=== PATIENT | male | born 1965 | race Caucasian/White ===

== ENCOUNTER → 2024-01-09 09:30 | Outpatient (REF) | payer OTHER, SELFPAY | LOC: HWRAD 09:30 | PROVIDERS: ATTENDING PHYSICIAN Otolaryngology Facial Plastic Surgery; FAMILY PHYSICIAN Family Medicine | DX: J33.0 Polyp of nasal cavity (principal); J32.0 Chronic maxillary sinusitis; J32.2 Chronic ethmoidal sinusitis | CPT/HCPCS: 70486 ==

== ENCOUNTER 2024-02-28 06:12 | Day surgery (SDC) | payer OTHER, SELFPAY ==
[2024-02-13 08:36] VITALS: BMI 24.0
[2024-02-13 09:59] LABS: Hematocrit 45.6 % (39.0-52.0); Hemoglobin 16.2 g/dL (13.0-18.0); Mean Corp Hgb Conc. 35.5 g/dL (33.0-37.0); Mean Corpuscular Hgb 31.7 pg (27.0-31.0); Mean Corpuscular Volume 89.2 fL (80.0-94.0); Platelet Count 208 10^3/uL (130-400); Red Blood Cell Count 5.11 10^6/uL (4.70-6.10); Red Cell Dist. Width 12.8 % (11.5-14.5); White Blood Cell Count 6.8 10^3/uL (4.8-10.8)
[2024-02-28] VITALS (10 sets, daily range): BP systolic 115–164; BP diastolic 66–98; BMI 24.0
[2024-02-28] MEDS: NORMOSOL-R 1000 IV (08:22)
== END 2024-02-28 14:14 | disposition home or self-care (01) ==
LOC: SDS 06:12
PROVIDERS: ATTENDING PHYSICIAN Otolaryngology Facial Plastic Surgery; FAMILY PHYSICIAN Family Medicine
DX: J32.9 Chronic sinusitis, unspecified (principal); J33.9 Nasal polyp, unspecified; J34.3 Hypertrophy of nasal turbinates; J34.2 Deviated nasal septum
CPT/HCPCS: 31276; 30520; 31267; 31288; 30140; 88304; 88311; 85027; 93005

== ENCOUNTER 2024-11-25 16:45 | Emergency (ER) | payer OTHER, SELFPAY ==
[2024-11-25 16:47] VITALS: BP 175/110
[2024-11-25 18:21] VITALS: BMI 24.1
[2024-11-25 18:34] LABS: % Basophils 0.6 % (0-2); % Eosinophils 6.8 % (0-6); % Immature Granulocytes 0.4 % (0-0.5); % Lymphocytes 15.8 % (20.5-51.1); % Monocytes 7.8 % (1.7-9.3); % Neutrophils 68.6 % (42.2-75.2); Absolute Basophils 0.1 10^3/uL (0-0.2); Absolute Eosinophils 0.7 10^3/uL (0-0.7); Absolute Lymphocytes 1.6 10^3/uL (1.2-3.4); Absolute Monocytes 0.8 10^3/uL (0.1-0.6); Absolute Neutrophils 6.9 10^3/uL (1.4-6.5); Hematocrit 45.8 % (39.0-52.0); Hemoglobin 16.4 g/dL (13.0-18.0); Mean Corp Hgb Conc. 35.8 g/dL (33.0-37.0); Mean Corpuscular Hgb 31.2 pg (27.0-31.0); Mean Corpuscular Volume 87.2 fL (80.0-94.0); Mean Platelet Volume 8.3 fL (7.4-10.4); Nucleated Red Blood Cells % 0 % (-); Platelet Count 191 10^3/uL (130-400); Red Blood Cell Count 5.25 10^6/uL (4.70-6.10); Red Cell Dist. Width 12.9 % (11.5-14.5); White Blood Cell Count 10.1 10^3/uL (4.8-10.8)
[2024-11-25] MEDS: OMNIPAQUE 50 ML PO (18:36)
[2024-11-25 18:45] LABS: ALT (SGPT) 24 U/L (0-50); AST (SGOT) 19 U/L (17-59); Alkaline Phosphatase 55 U/L (38-126); Blood Urea Nitrogen 18 mg/dl (9-20); Calcium 9.4 mg/dl (8.4-10.2); Carbon Dioxide 29 mmol/L (22-30); Chloride 104 mmol/L (98-107); Estimated Creatinine Clearance 89 ml/min; Glucose 89 mg/dl (70-99); Lipase 63 U/L (23-300); Potassium 4.2 mmol/L (3.5-5.1); Sodium 140 mmol/L (135-145); Total Bilirubin 2.8 mg/dl (0.2-1.3); Total Protein 6.6 g/dl (6.3-8.2); eGFR > 60.00
--- NOTE | 2024-11-25 19:04 | ED.GENMED ---
History of Present Illness
General
Chief Complaint: Rectal Bleeding
Source: patient
Exam Limitations: none
Time Seen by Provider: 11/25/24 17:49
Nursing documentation reviewed up to this point in time: agreed with
History of Present Illness
History of Present Illness:
Patient to ED with complaint of abdominal pain and bloating. States he had a normal BM yesterday but then last PM he felt like he needed to pass more stool but couldnt. Report straining without passisng stool. He then developed severe abd. pain.
No vomiting or diarrhea. States this AM he passed a small amt of stool and noted blood on tissue. He passed another small stool [employer] and there was blood in toilet. COntinues wtih abd. pain and bloating. Denies fever/chills
Past History
Past History
ED Past Medical History: Hypercholesterolemia and Other ([place] disease)
Social History
Tobacco: Non-smoker
Personal:
Review of Systems
Review of Systems
Allergies reviewed?: Yes
All Other Systems: ROS reviewed and negative except as documented in HPI and ROS
Constitutional: Reports no symptoms
EENT: Reports no symptoms
Respiratory: Reports no symptoms
Cardiac: Reports no symptoms
ABD/GI: Reports abdominal pain and other (bloating, blood on tissue and in toilet)
: Reports no symptoms
Musculoskeletal: Reports no symptoms
Skin: Reports no symptoms
Neurological: Reports no symptoms
Psychiatric: Reports no symptoms
Phy Exam
General Physical Exam
General Presentation: well appearing and no apparent distress
General age: appears stated age
General Skin: warm and dry
General Habitus: normal
General Mental: alert
Cardiovascular Exam
Cardiovascular Exam: regular rate/rhythm and no edema
Gastrointestinal Exam
Gastrointestinal Exam: normal bowel sounds, soft, no organomegaly, no pulsatile mass, non distended and no cva tenderness
Palpation: generalized: Mild tenderness
Rectal Exam: normal external exam, normal sphincter tone and soft stool
Stool: brown
Guaiac Status: negative
Musculoskeletal Exam
Musculoskeletal Exam: full ROM and neuro vasc intact
Skin Exam
Skin Exam: normal color, warm/dry and no rash
Psychiatric Exam
Psychiatric Exam: normal mood/affect
Course
Orders/Labs/Results
Orders:
Orders
11/25/24 18:13
CT Abd/pel W Iv And Oral Contr Urgent
Comment:
Reason For Exam: diffuse pain, bloating
Iohexol [Omnipaque] See Protocol PO NOW STA
11/25/24 18:20
Complete Blood Count/With Diff Urgent
Comprehensive Metabolic Panel Urgent
Lipase Urgent
Abnormal Lab Results
11/25/24
18:20
MCH 31.2 H pg
(27.0-31.0)
Absolute Neuts (auto) 6.9 H 10^3/uL
(1.4-6.5)
Absolute Monos (auto) 0.8 H 10^3/uL
(0.1-0.6)
Lymphocytes % 15.8 L %
(20.5-51.1)
Eosinophils % 6.8 H %
(0-6)
Total Bilirubin 2.8 H mg/dl
(0.2-1.3)
11/25/24 18:20
11/25/24 18:20
Vital Signs
Initial and Last Documented VS:
Initial Vital Signs
Temp Pulse Resp BP Pulse Ox
98.2 F 61 16 175/110 99
11/25/24 16:47 11/25/24 16:47 11/25/24 16:47 11/25/24 16:47 11/25/24 16:47
Last Documented Vital Signs
Temp Pulse Resp BP Pulse Ox
98.2 F 54 16 146/86 97
11/25/24 16:47 11/25/24 18:28 11/25/24 16:47 11/25/24 21:07 11/25/24 21:32
*Radiology
Radiology exam reviewed: radiology read reviewed
*Pulse Oximetry
Patient hypoxic: no
*Critical Care Note
Total Time (30-74mins, 75-104mins- exclusive of procedures): Not Applicable
Update Note
Update Note:
Patient to ED for eval of abdominal pain, blood with BM today. Labs reveiwed. Hgb normal, WBC normal. Tbili 2.8. He has a known history of [place] and reports this result is typical. Stool heme neg. Ct result of colitis of descending colon.
Reviewed this with patient. Recommend clear liquids, advance diet as tolerated. Doubtful for infectious etiology as he is afebrile with normal labs, no diearrhea. He remains afebrile. WIll discharge home, follow u with PCP in AM. Given
instructions on s/s to return to ED and he is agreeable to plan.
ED Attending Note
-
Portions of this chart may have been created with voice recognition software.� Occasional wrong word or��sound alike� substitutions may have occurred due to the inherent limitations of voice recognition software.
Discharge Plan
Departure
Patient Disposition: Home (Routine Discharge)
Date of Disposition: 11/25/24
Time of Disposition: 21:40
Patient with high blood pressure during this ER visit?: No
Condition: Good
Covid-19: Not Applicable
Discharge Problem:
Colitis
Instructions: Clear liquid diet, Abdominal Pain
Prescriptions:
No Action
multivitamin Tablet
1 tab PO DAILY
fexofenadine [Armida] 180 mg Tablet
180 mg PO DAILY
ascorbic acid (vitamin C) [Vitamin C] 500 mg Tablet
500 mg PO DAILY
rosuvastatin 10 mg Tablet
10 mg PO DAILY
coQ10 (ubiquinol) 200 mg Capsule
200 mg PO DAILY
mecobalamin (vitamin B12) [B12 Active] 1,000 mcg Tablet,Chewable
1,000 mcg PO DAILY
Patient Comments:
B3/B12 COMBO
turmeric root-genesis root ext 150-25 mg Tablet,Chewable
1 tab PO DAILY
Referrals:
Lloyd Bernardo, DO [Family Provider] - Tomorrow
Stand Alone Forms: Return to Work
Activity Restrictions/Additional Instructions:
Return to the emergency department immediately for any changes in/worsenng of your symptoms. Clear liquid diet for 24 hours and then advance your diet as tolertated.
Interventions
Interventions:
*Risk Screen - Suicide Last Done: 11/25/24 16:47
*General Assessment Last Done: 11/25/24 18:23
*Neglect/Abuse Screening Last Done: 11/25/24 16:47
*ED- Fall Risk Assessment Last Done: 11/25/24 18:23
*ED COVID-19 Vaccine History Last Done: 11/25/24 18:23
FF-Kxrhnq-Betzvtlhes Assessment Last Done: 11/25/24 18:30
ED- Cardiac Assessment Last Done: 11/25/24 18:29
ED- Pulmonary Assessment Last Done: 11/25/24 18:29
Discharge Date and Time
Print Language: [id number]
[2024-11-25 21:07] VITALS: BP 146/86
== END 2024-11-25 22:22 | disposition home or self-care (01) ==
LOC: EMR 16:45
PROVIDERS: Nurse Practitioner; EMERGENCY PHYSICIAN Emergency Medicine; FAMILY PHYSICIAN Family Medicine; REFERRING PHYSICIAN Specialist
DX: K52.9 Noninfective gastroenteritis and colitis, unspecified (principal); E78.00 Pure hypercholesterolemia, unspecified; E80.4 Gilbert syndrome
CPT/HCPCS: 99284; 74177; 80053; 83690; 85025; Q9967

== ENCOUNTER 2025-02-03 06:16 | Day surgery (SDC) | payer OTHER, SELFPAY | END 2025-02-03 08:43 | disposition home or self-care (01) | LOC: GI 06:16 | PROVIDERS: ATTENDING PHYSICIAN Specialist | DX: R93.3 Abnormal findings on diagnostic imaging of other parts of digestive tract (principal); K64.8 Other hemorrhoids; K52.9 Noninfective gastroenteritis and colitis, unspecified | CPT/HCPCS: 45378 ==